=== PATIENT | male | born 1945 | race Caucasian/White ===

== ENCOUNTER 2021-09-08 10:16 | Outpatient (CLI) | payer OTHER | END 2021-09-08 10:26 | disposition home or self-care (01) | LOC: NUCLEAR 10:16 | PROVIDERS: ATTEND Thoracic Surgery (Cardiothoracic Vascular Surgery) | DX: I73.9 Peripheral vascular disease, unspecified (principal) ==

== ENCOUNTER 2023-05-05 15:19 | Outpatient (CLI) | payer OTHER | END 2023-05-05 15:35 | disposition home or self-care (01) | LOC: RAD 15:19 | PROVIDERS: ATTEND Internal Medicine | DX: Z01.810 Encounter for preprocedural cardiovascular examination (principal); I10 Essential (primary) hypertension; M54.59 Other low back pain; E03.9 Hypothyroidism, unspecified; E78.9 Disorder of lipoprotein metabolism, unspecified; E55.9 Vitamin D deficiency, unspecified; E11.51 Type 2 diabetes mellitus with diabetic peripheral angiopathy without gangrene; E66.8 Other obesity; G62.9 Polyneuropathy, unspecified ==

== ENCOUNTER 2024-07-27 10:49 | Outpatient (CLI) | payer OTHER | END 2024-07-27 10:55 | disposition home or self-care (01) | LOC: RAD 10:49 | PROVIDERS: ATTEND Specialist | DX: I10 Essential (primary) hypertension (principal) ==